=== PATIENT | male | born 1955 | race Two or more races ===

== ENCOUNTER 2024-06-03 10:12 | Inpatient (IN) | payer BC, MEDICARE ==
[~2024-06-03] VITALS: Ht 170.2 cm; Wt 104.4 kg
--- NOTE | 2024-06-03 10:58 | ED.PDOC ---
General HPI Comments HPI: Poor Historian. 69 y.o male presents to the ED for a chief complaint of bilateral flank pain associated with weakness, dizziness, chest discomfort . Patient reports recent appointment with urologist Dr. Portillo in which he scheduled due to hematuria and had a cystoscopy one week ago and was diagnosed with an infection and placed on antibiotics. Patient reports no active hematuria recently. Patient has started his antibiotics but is unsure of the name of medication at this time. Patient denies any SOB, dysuria, nausea, vomiting, diarrhea. Vitals BP: 144/80 HR: 72 Temp: 98.3 F RR: 18 SPO2: 97$ RA Past medical history: UTI Past surgical history: Eye Allergies: Denies REVIEW OF SYSTEMS: CONSTITUTIONAL: Denies acute: fever, diaphoresis, chills, HEAD: Denies acute: headache, photophobia Eyes: Denies acute: Double vision, vision loss, eye pain, eye discharge. EARS: Denies acute: tinnitus, hearing loss, ear discharge, ear pain, THROAT: Denies acute: sore throat, swelling, difficulty swallowing , pain with swallowing, change in voice. NECK: Denies acute: neck pain, neck swelling, stiff neck. HEART: Denies acute : palpitations, LUNGS: Denies acute: SOB, wheezing, cough, hemoptysis ABDOMEN: Denies acute: abdominal pain, Nausea, Vomiting, diarrhea, melena , hematemesis, hematochezia SKIN: Denies acute: rash, redness, lesions, itchiness. EXTREMITIES: Denies acute: calf pain, numbness, tingling, weakness, denies pain in extremity. Denies acute: Low back pain. Neuro: Denies acute: focal neurological deficit, motor or sensory focal neurological deficit, tremors, seizure like activity, confusion, dizziness, change in mental status, loss of bowel or bladder function, cauda equina like symptoms. : Denies acute: dysuria, hematuria, , increase in urinary frequency. PSYCH: Denies acute: hallucination, suicidal ideation, homicidal ideation. PHYSICAL EXAM: General: no acute distress, awake and alert. Head: normocephalic, atraumatic. Neck: supple, trachea is midline, no swelling. Throat: Normal phonation. Eyes:, no erythema, no purulent discharge, no proptosis, no icterus. Heart: regular rate, regular rhythm, no significant murmur appreciated. Lungs: no apparent respiratory distress, Able to speak in full sentences. No wheezing, no rhonchi, no crackles. No stridors Clear to auscultation bilaterally. Abdomen: Nonspecific mild generalized tender to palpation, non distended, soft, no guarding, no rebound, + bowel sounds. Neuro: Awake, Alert, oriented to name, self, situation, follows commands GCS=15. Speech is normal. Skin: no petechia, no purpura, no cyanosis, non-pale, not jaundice. Lower extremities: --trace - Pitting edema no deformity, no focal swelling, no calf TTP. Makes eye contact. moves all four extremities. Face: no apparent facial droop. CVA tenderness to percussion bilaterally. Ambulating in the ED independently. ED COURSE: Chief Complaint: Flank Pain Time Seen by MD: 10:40 Primary Care Provider: unknown Reviewed notes: Nurses Notes, Allergies Allergies: Coded Allergies: NO KNOWN ALLERGIES (Unverified , 06/03/24) Information Source: Patient Mode of Arrival: Ambulatory Past Medical History PAST MEDICAL HISTORY: UTI'S Surgical History (Other): eye Family History Family History: Reviewed,noncontributory to illness Social History Smoker: Non-Smoker Alcohol: Denies ETOH Use Drugs: Denies Drug Use Lives In: Home Was a procedure done? Was a procedure done?: No Differential Diagnosis Kidney stone (Female): N/A Kidney stone (Male): Pancreatitis, Pyelonephritis, Strain, Urinary tract infection Urinary Problem (Male): Bladder Outlet, Bladder Obstruction, Epididymitis, Prostatitis, Plelonephritis, Post op Complications, Renal Failure, Urethritis, Urinary Retention, Urolithiasis, UTI Urinary Problem (Female): N/A (As far as the chest pain differential diagnosis includes Ddx include but not limitied to gastritis, musculoskeletal pain, radicu lopathy, atypical chest pain, dissection, aneurysm, ACS, unstable angina, hiatal hernia, GERD, anxiety, costochondritis, PE, pneumothroax, neoplasm, cardiac ischemia, drug abuse, anemia.) X-Ray, Labs, Meds, VS Vital Signs Date Time Temp Pulse Resp B/P (MAP) Pulse Ox O2 Delivery O2 Flow Rate FiO2 06/03/24 13:37 135/78 06/03/24 12:37 135/81 06/03/24 12:26 98.0 68 15 135/81 (99) 97 98.0 06/03/24 11:41 68 18 111/72 (85) 98 06/03/24 11:41 68 18 98 Room Air* 0 21 06/03/24 10:46 98.3 72 18 144/80 (101) 97 Lab Test 06/03/24 11:57 06/03/24 11:02 06/03/24 10:43 Range/Units Troponin I High Sensitivity < 3 L < 3 L </=54 ng/L White Blood Count 12.9 H 4.4-10.8 10^3/uL Red Blood Count 5.33 4.5-5.90 10^6/uL Hemoglobin 16.3 13.5-17.5 g/dL Hematocrit 48.0 41.0-53.0 % Mean Corpuscular Volume 90.0 80.0-100.0 fL Mean Corpuscular Hemoglobin 30.5 28.0-32.0 pg Mean Corpuscular Hemoglobin Concent 33.9 32.0-36.0 g/dL Red Cell Distribution Width 14.3 11.8-14.3 % Platelet Count 338 140-450 10^3/uL Mean Platelet Volume 7.1 6.9-10.8 fL Neutrophils (%) (Auto) 75.3 37.0-80.0 % Lymphocytes (%) (Auto) 17.2 10.0-50.0 % Monocytes (%) (Auto) 5.6 0.0-12.0 % Eosinophils (%) (Auto) 1.5 0.0-7.0 % Basophils (%) (Auto) 0.4 0.0-2.0 % Neutrophils # (Auto) 9.7 H 1.6-8.6 10 ^3/uL Lymphocytes # (Auto) 2.2 0.4-5.4 10 ^3/uL Monocytes # (Auto) 0.7 0-1.3 10 ^3/uL Eosinophils # (Auto) 0.2 0-0.8 10 ^3/uL Basophils # (Auto) 0 0-0.2 10 ^3/uL Nucleated Red Blood Cells 0.1 % Sodium Level 136 136-145 mmol/L Potassium Level 4.6 3.5-5.1 mmol/L Chloride Level 101 98-107 mmol/L Carbon Dioxide Level 27 20-31 mmol/L Anion Gap 8 5-15 Blood Urea Nitrogen 15 9-23 mg/dL Creatinine 0.96 0.700-1.30 mg/dL Glomerular Filtration Rate Calc 86 >90 mL/min BUN/Creatinine Ratio 15.6 10.0-20.0 Serum Glucose 103 74-106 mg/dL Lactic Acid Level 1.9 0.4-2.0 mmol/L Calcium Level 10.4 8.7-10.4 mg/dL Magnesium Level 2.0 1.6-2.6 mg/dL Total Bilirubin 0.5 0.2-1.0 mg/dL Aspartate Amino Transferase (AST) 17 13-40 U/L Alanine Aminotransferase (ALT) 27 7-40 U/L Alkaline Phosphatase 85 46-116 U/L Total Protein 7.4 5.7-8.2 g/dL Albumin 5.0 H 3.2-4.8 g/dL Lipase 26 12-53 U/L Urine Color Yellow Yellow Urine Clarity Clear Clear Urine pH 6.0 5.0-9.0 Urine Specific [place] 1.017 1.001-1.035 Urine Protein Negative Negative Urine Ketones Negative Negative Urine Blood Negative Negative /uL Urine Nitrite Negative Negative Urine Bilirubin Negative Negative Urine Urobilinogen Normal Negative mg/dL Urine Leukocyte Esterase Negative Negative /uL Urine RBC <1 0 - 3 /hpf Urine Microscopic WBC < 1 0-3 /HPF Urine Squamous Epithelial Cells None seen <5 /hpf Urine Bacteria None seen None Seen /hpf Urine Glucose Normal Normal mg/dL Current Medications Medications (Trade) Dose Ordered Sig/Asa Route Start Time Stop Time Status Last Admin Ceftriaxone Sodium 50 ml @ 100 mls/hr ONCE ONCE IV 06/03/24 12:15 06/03/24 15:24 DC 06/03/24 13:03 Aspirin 325 mg ONCE ONCE PO 06/03/24 12:30 06/03/24 12:31 DC 06/03/24 12:37 Nitroglycerin (Ntrostat Sublingual) 0.4 mg ONCE ONCE SL 06/03/24 12:30 06/03/24 12:31 DC 06/03/24 12:37 Sodium Chloride 500 ml @ 500 mls/hr Q1H ONCE IV 06/03/24 12:30 06/03/24 13:29 DC 06/03/24 12:37 [place] [id number] Ph: [phone] DIAGNOSTIC IMAGING Diagnostic Imaging Report : [id number] Signed PATIENT: ALONA KERN I ACCT: [id number] UNIT: [id number] : 1955 LOC: ER ROOM / BED: / AGE / SEX: 69 / M ADM STATUS: REG ER SERVICE [id number] ORDERING PHYSICIAN: KRISTOFER RIVER DO PROCEDURE(s): CXRP - CHEST PORTABLE REASON: cp ORDER NUMBER(s): [id number], ACCESSION NUMBER(s): [id number] CHEST RADIOGRAPH Indication: cp Technique: Single frontal view of the chest was obtained Comparison: None FINDINGS: Lines and Tubes: None Lungs: No focal consolidation. Pleura: No effusion. No pneumothorax. Cardiomediastinal contours: Unremarkable Bones: No acute osseous abnormality. IMPRESSION: 1. No acute cardiopulmonary disease. ATED BY: VIKTORIA URBINA MD DICTATED DATE/TIME: 06/03/241120 SIGNED BY: VIKTORIA URBINA MD SIGNED DATE/TIME: 06/03/24 112 CC: [place] [address] Ph: [phone] DIAGNOSTIC IMAGING Diagnostic Imaging Report : [id number] Signed PATIENT: ALONA KERN I ACCT: [id number] UNIT: [id number] : 1955 LOC: ER ROOM / BED: / AGE / SEX: 69 / M ADM STATUS: REG ER SERVICE [id number] ORDERING PHYSICIAN: KRISTOFER RIVER DO PROCEDURE(s): ABPL - CT AB PEL WO CON-NO ORAL OR IV REASON: b/l flank pain, uti, hematuria ORDER NUMBER(s): [id number], ACCESSION NUMBER(s): [id number] CT ABDOMEN AND PELVIS WITHOUT CONTRAST CLINICAL HISTORY: b/l flank pain, uti, hematuria TECHNIQUE: Multiple contiguous axial images of the abdomen and pelvis without intravenous contrast. The images were reformatted degenerate coronal and sagittal reconstructions. All CT scans at this medical facility are performed using dose modulation techniques as appropriate to a performed exam including the following:Automated exposure control was utilized; adjustment of the MA and/or KV according to patient size; and use of iterative reconstruction technique. Radiation Dose Information: CT Dose: CTDI volume is 19 mGy. Dose-length product is 1254 mGy*cm Comparison: None FINDINGS: Evaluation of the abdomen and pelvis is limited without intravenous contrast. There is no evidence of nephrolithiasis or hydronephrosis. There is no evidence of a ureteral calculus or hydroureter. The liver, gallbladder, pancreas, adrenal glands, and spleen appear within normal limits. There is no gross evidence of abdominal lymphadenopathy. There is no free fluid or free air. The stomach grossly appears unremarkable. The small and large bowel loops demonstrate normal caliber. There are diverticula in the colon without evidence of acute diverticulitis. Appendix is not readily seen in the right lower quadrant abdomen. There are no secondary signs of acute appendicitis The abdominal aorta and IVC appear within normal limits. The prostate gland appears prominent in size. An incompletely filled bladder demonstrates circumferential wall thickening likely related to chronic outlet obstruction.. There is no gross evidence of a pelvic mass. There is no free f luid collection. Lung bases are clear. There is no acute osseous abnormality. IMPRESSION: 1. There is no acute process in the abdomen and pelvis. 2. Prostatomegaly. An incompletely filled bladder demonstrates circumferential wall thickening likely related to chronic outlet obstruction. 3. Distal colon diverticulosis. HS:Y ATED BY: JAMIN BOWDEN MD DICTATED DATE/TIME: 06/03/24 1142 SIGNED BY: JAMIN BOWDEN MD SIGNED DATE/TIME: 06/03/24 1142 CC: Time of 1ST Reevaluation: 10:54 Reevaluation 1ST: Unchanged Patient Education/Counseling: Diagnosis, Treatment Family Education/Counseling: No Family Present Comments Patient presented with the above HPI.---flank pain and urinary symptoms workup and cardiac---workup were initiated. patient was found with the above mentioned diagnosis. the following medications were ordered: please refer to order lists of meds and tests obtained by myself Dr. River. Patient ED course and VS have been stabilized. Patient has been reassessed in the ED and remained in a stable condition. Pertinent incidental findings were discussed with the patient and/or family. Patient/family voices understanding and is agreeable with plan. Patient has been observed in the ED adequate length of time to insure improvement/stability. Escalation of care considered: Consideration of escalation to observation or admission Patient was ADMITTED to the medicine team for further evaluation and treatment of their presentation. All the reports of any imaging studies that were ordered by myself were reviewed by myself. Departure 1 Departure Time of Disposition: 12:16 Impression: Primary Impression: Chest pain Additional Impressions: Bilateral flank mass Symptoms involving urinary system Disposition: ADMITTED INPATIENT Condition: Guarded Discharged With: Self Critical Care Note Critical Care Time?: No I personally scribed for KRISTOFER RIVER DO ([email or web address]) on 06/03/24 at 10:58. Electronically submitted by Hemalatha Aponte ([facility]). I personally scribed for KRISTOFER RIVER DO ([email or web address]) on 06/03/24 at 12:09. Electronically submitted by Hemalatha Aponte ([facility]). I personally scribed for KRISTOFER RIVER DO ([email or web address]) on 06/03/24 at 19:50. Electronically submitted by Hemalatha Aponte ([facility]). KRISTOFER RIVER DO Jun 03, 2024 10:58
[2024-06-03 11:09] LABS: Urine Bacteria None Seen /hpf (None Seen)
[2024-06-03 11:21] LABS: Basophils # (auto) 0 10 ^3/uL (0-0.2); Basophils % (auto) 0.4 % (0.0-2.0); Eosinophils # (auto) 0.2 10 ^3/uL (0-0.8); Eosinophils % (auto) 1.5 % (0.0-7.0); Hemoglobin 16.3 g/dL (13.5-17.5); Lymphocytes # (auto) 2.2 10 ^3/uL (0.4-5.4); Lymphocytes % (auto) 17.2 % (10.0-50.0); Mean Corpuscular Hemoglobin 30.5 pg (28.0-32.0); Mean Corpuscular Hgb Conc. 33.9 g/dL (32.0-36.0); Monocytes # (auto) 0.7 10 ^3/uL (0-1.3); Monocytes % (auto) 5.6 % (0.0-12.0); Neutrophils # (auto) 9.7 10 ^3/uL (1.6-8.6); Neutrophils % (auto) 75.3 % (37.0-80.0); Nucleated Red Blood Cells % 0.1 %; Platelet Count (auto) 338 10^3/uL (140-450); Red Blood Cells 5.33 10^6/uL (4.5-5.90); Red Cell Distribution Width 14.3 % (11.8-14.3); White Blood Cell 12.9 10^3/uL (4.4-10.8)
--- NOTE | 2024-06-03 11:23 | DVH ---
CHEST RADIOGRAPH Indication: cp Technique: Single frontal view of the chest was obtained Comparison: None FINDINGS: Lines and Tubes: None Lungs: No focal consolidation. Pleura: No effusion. No pneumothorax. Cardiomediastinal contours: Unremarkable Bones: No acute osseous abnormality. IMPRESSION: 1. No acute cardiopulmonary disease.
[2024-06-03 11:28] LABS: Urine Blood Negative /uL (Negative); Urine Clarity Clear (Clear); Urine Color Yellow (Yellow); Urine Protein, UAD Negative (Negative); Urine Specific Gravity 1.017 (1.001-1.035); Urine Squamous Epithelial Cell None Seen /hpf (<5); Urine Urobilinogen Normal (Negative); Urine WBC < 1 /HPF (0-3)
[2024-06-03 11:41] VITALS: PULSE 68; RESP 18; O2SAT 98
[2024-06-03 11:41] LABS: Alanine Aminotransferase 27 U/L (7-40); Alkaline Phosphatase 85 U/L (46-116); Anion Gap 8 (5-15); Aspartate Aminotransferase 17 U/L (13-40); BUN/Creatinine Ratio 15.6 (10.0-20.0); Blood Urea Nitrogen 15 mg/dL (9-23); Calcium 10.4 mg/dL (8.7-10.4); Carbon Dioxide 27 mmol/L (20-31); Chloride 101 mmol/L (98-107); Glucose 103 mg/dL (74-106); Lipase 26 U/L (12-53); Potassium 4.6 mmol/L (3.5-5.1); Total Protein 7.4 g/dL (5.7-8.2)
[2024-06-03 11:42] LABS: Bilirubin, Total 0.5 mg/dL (0.2-1.0); Sodium 136 mmol/L (136-145)
--- NOTE | 2024-06-03 11:44 | DVH ---
CT ABDOMEN AND PELVIS WITHOUT CONTRAST CLINICAL HISTORY: b/l flank pain, uti, hematuria TECHNIQUE: Multiple contiguous axial images of the abdomen and pelvis without intravenous contrast. T he images were reformatted degenerate coronal and sagittal reconstructions. All CT scans at this medical facility are performed using dose modulation techniques as appropriate t o a performed exam including the following:Automated exposure control was utilized; adjustment of the MA and/or KV according to patient size; and use of iterative reconstruction technique. Radiation Dose Information: CT Dose: CTDI volume is 19 mGy. Dose-length product is 1254 mGy*cm Comparison: None FINDINGS: Evaluation of the abdomen and pelvis is limited without intravenous contrast. There is no evidence of nephrolithiasis or hydronephrosis. There is no evidence of a ureteral calculu s or hydroureter. The liver, gallbladder, pancreas, adrenal glands, and spleen appear within normal limits. There is no gross evidence of abdominal lymphadenopathy. There is no free fluid or free air. The stomach grossly appears unremarkable. The small and large bowel loops demonstrate normal caliber . There are diverticula in the colon without evidence of acute diverticulitis. Appendix is not read alfa seen in the right lower quadrant abdomen. There are no secondary signs of acute appendicitis The abdominal aorta and IVC appear within normal limits. The prostate gland appears prominent in size. An incompletely filled bladder demonstrates circumferen tial wall thickening likely related to chronic outlet obstruction.. There is no gross evidence of a pelvic mass. There is no free fluid collection. Lung bases are clear. There is no acute osseous abnormality. IMPRESSION: 1. There is no acute process in the abdomen and pelvis. 2. Prostatomegaly. An incompletely filled bladder demonstrates circumferential wall thickening likely related to chronic outlet obstruction. 3. Distal colon diverticulosis. HS:Y
[2024-06-03] MEDS: NITROGLYCERIN 0.4 MG SL TAB SL ONE (12:37)
[2024-06-03] MEDS: SODIUM CHLORIDE 0.9% 500 ML IV ONE (12:37)
[2024-06-03] MEDS: ASPirin 325 MG TAB PO ONE (12:37)
[2024-06-03] MEDS: cefTRIAXone 1GM/50ML D5W 50 ML IV ONE (13:03)
[2024-06-03] MEDS ORDERED: ACETAMINOPHEN 325 MG TAB PO PRN (15:15)
[2024-06-03] MEDS ORDERED: ONDANSETRON HCL 4 MG/2 ML VIAL IV PRN (15:15)
[2024-06-03] MEDS ORDERED: cefTRIAXone 1GM/50ML D5W 50 ML IV ONE (15:15)
--- NOTE | 2024-06-03 15:25 | DVHHP2 ---
History of Present Illness Reason for Visit: Left flank pain History of Present Illness Enrique Greer I is a 69-year-old male with past medical history of hyperlipidemia, UTIs, cystoscopy a week ago, bilateral carpal tunnel surgery, appendectomy, and left retinal detachment who presents to the ED with left flank pain x1 day. Patient reports the pain as 7/10 aching and constant. He also reports that he has been having cold sweats for years. 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 He denies any heart failure history. Patient denies any hematuria, chest pain, shortness of breath, fever, chills, lightheadedness, weakness, dizz iness, nausea, vomiting, diarrhea, abdominal pain, wheezing, recent trauma or injury, recent sick contacts, and recent ingestion of spoiled food. Patient was recently discharged with antibiotics but unknown what he was prescribed. Cardiovascular: hyperipidemia Renal/: UTI Past Surgical History: Appendectomy, Other (Left retinal detachment repair, bilateral carpal tunnel surgery, and cystoscopy) Family History: None Smoke: No (Chews tobacco) ALCOHOL: none Drugs: None Lives: with Family Domestic Violence: Neg Review of Systems Constitutional: Yes: Sweats Musculoskeletal: other (Left flank pain) Allergies: Coded Allergies: NO KNOWN ALLERGIES (Unverified , 06/03/24) Exam Vital Signs Vital Signs Date Time Temp Pulse Resp B/P (MAP) Pulse Ox O2 Delivery O2 Flow Rate FiO2 06/03/24 13:37 135/78 06/03/24 12:26 98.0 68 15 97 98.0 06/03/24 11:41 Room Air* 0 21 General Appearance: Alert, Oriented X3, Cooperative, No acute distress HEENT: Atraumatic, PERRLA, EOMI, Mucous membr. moist/pink Respiratory: Clear to auscultation, Normal air movement Cardiovascular: Regular rate, Normal S1, Normal S2, No murmurs Abdominal: Normal bowel sounds, Soft, No tenderness, No hepatospenomegaly, No masses Extremities: No cyanosis, Normal pulses Skin: No significant lesion Neuro: Normal gait, Normal speech, Strength at 5/5 X4 ext, Normal tone, Sensation intact Psych/Mental Status: Mental status NL, Mood NL Labs/Xrays Labs Test 06/03/24 11:57 06/03/24 11:02 06/03/24 10:43 Range/Units Troponin I High Sensitivity < 3 L </=54 ng/L White Blood Count 12.9 H 4.4-10.8 10^3/uL Red Blood Count 5.33 4.5-5.90 10^6/uL Hemoglobin 16.3 13.5-17.5 g/dL Hematocrit 48.0 41.0-53.0 % Mean Corpuscular Volume 90.0 80.0-100.0 fL Mean Corpuscular Hemoglobin 30.5 28.0-32.0 pg Mean Corpuscular Hemoglobin Concent 33.9 32.0-36.0 g/dL Red Cell Distribution Width 14.3 11.8-14.3 % Platelet Count 338 140-450 10^3/uL Mean Platelet Volume 7.1 6.9-10.8 fL Neutrophils (%) (Auto) 75.3 37.0-80.0 % Lymphocytes (%) (Auto) 17.2 10.0-50.0 % Monocytes (%) (Auto) 5.6 0.0-12.0 % Eosinophils (%) (Auto) 1.5 0.0-7.0 % Basophils (%) (Auto) 0.4 0.0-2.0 % Neutrophils # (Auto) 9.7 H 1.6-8.6 10 ^3/uL Lymphocytes # (Auto) 2.2 0.4-5.4 10 ^3/uL Monocytes # (Auto) 0.7 0-1.3 10 ^3/uL Eosinophils # (Auto) 0.2 0-0.8 10 ^3/uL Basophils # (Auto) 0 0-0.2 10 ^3/uL Nucleated Red Blood Cells 0.1 % Sodium Level 136 136-145 mmol/L Potassium Level 4.6 3.5-5.1 mmol/L Chloride Level 101 98-107 mmol/L Carbon Dioxide Level 27 20-31 mmol/L Anion Gap 8 5-15 Blood Urea Nitrogen 15 9-23 mg/dL Creatinine 0.96 0.700-1.30 mg/dL Glomerular Filtration Rate Calc 86 >90 mL/min BUN/Creatinine Ratio 15.6 10.0-20.0 Serum Glucose 103 74-106 mg/dL Lactic Acid Level 1.9 0.4-2.0 mmol/L Calcium Level 10.4 8.7-10.4 mg/dL Magnesium Level 2.0 1.6-2.6 mg/dL Total Bilirubin 0.5 0.2-1.0 mg/dL Aspartate Amino Transferase (AST) 17 13-40 U/L Alanine Aminotransferase (ALT) 27 7-40 U/L Alkaline Phosphatase 85 46-116 U/L Total Protein 7.4 5.7-8.2 g/dL Albumin 5.0 H 3.2-4.8 g/dL Lipase 26 12-53 U/L Urine Color Yellow Yellow Urine Clarity Clear Clear Urine pH 6.0 5.0-9.0 Urine Specific [place] 1.017 1.001-1.035 Urine Protein Negative Negative Urine Ketones Negative Negative Urine Blood Negative Negative /uL Urine Nitrite Negative Negative Urine Bilirubin Negative Negative Urine Urobilinogen Normal Negative mg/dL Urine Leukocyte Esterase Negative Negative /uL Urine RBC <1 0 - 3 /hpf Urine Microscopic WBC < 1 0-3 /HPF Urine Squamous Epithelial Cells None seen <5 /hpf Urine Bacteria None seen None Seen /hpf Urine Glucose Normal Normal mg/dL CHEST RADIOGRAPH Indication: cp Technique: Single frontal view of the chest was obtained Comparison: None FINDINGS: Lines and Tubes: None Lungs: No focal consolidation. Pleura: No effusion. No pneumothorax. Cardiomediastinal contours: Unremarkable Bones: No acute osseous abnormality. IMPRESSION: 1. No acute cardiopulmonary disease. CT ABDOMEN AND PELVIS WITHOUT CONTRAST CLINICAL HISTORY: b/l flank pain, uti, hematuria TECHNIQUE: Multiple contiguous axial images of the abdomen and pelvis without intravenous contrast. The images were reformatted degenerate coronal and sagittal reconstructions. All CT scans at this medical facility are performed using dose modulation techniques as appropriate to a performed exam including the following:Automated exposure control was utilized; adjustment of the MA and/or KV according to patient size; and use of iterative reconstruction technique. Radiation Dose Information: CT Dose: CTDI volume is 19 mGy. Dose-length product is 1254 mGy*cm Comparison: None FINDINGS: Evaluation of the abdomen and pelvis is limited without intravenous contrast. There is no evidence of nephrolithiasis or hydronephrosis. There is no evidence of a ureteral calculus or hydroureter. The liver, gallbladder, pancreas, adrenal glands, and spleen appear within normal limits. There is no gross evidence of abdominal lymphadenopathy. There is no free fluid or free air. The stomach grossly appears unremarkable. The small and large bowel loops demonstrate normal caliber. There are diverticula in the colon without evidence of acute diverticulitis. Appendix is not readily seen in the right lower quadrant abdomen. There are no secondary signs of acute appendicitis The abdominal aorta and IVC appear within normal limits. The prostate gland appears prominent in size. An incompletely filled bladder demonstrates circumferential wall thickening likely related to chronic outlet obstruction.. There is no gross evidence of a pelvic mass. There is no free fl uid collection. Lung bases are clear. There is no acute osseous abnormality. IMPRESSION: 1. There is no acute process in the abdomen and pelvis. 2. Prostatomegaly. An incompletely filled bladder demonstrates circumferential wall thickening likely related to chronic outlet obstruction. 3. Distal colon diverticulosis. Assessment/Plan Assessment/Plan Assessment Left flank pain Leukocytosis Diverticulosis Prostatomegaly Tobacco use Obesity History of left retinal detachment surgery History of Bilateral carpal tunnel surgery History of appendectomy Plan Admit to same day [facility] center IV antibiotics-Levaquin IV fluids given in ED Nitro given ED Aspirin given ED EKG Troponin negative x2 CT abdomen and pelvis noted Chest x-ray noted UA Mag level Lipase Lactic Influenza swab COVID swab PSA BNP Echo ordered Finasteride Tamsulosin Ultrasound bilateral lower extremity Ultrasound left kidney ordered Diet Antiemetics Pain management Counseled patient on cessation of chewing tobacco Counseled patient on lifestyle modifications, diet, and exercise Requested patient to give a home list of medications taken, unable to reconcile medications Plan discussed with: Patient My Orders Orders - ALMA SOLORIO [employer] Procedure Category Date Status Time Psa Total+% Free LAB 06/03/24 Logged 15:09 B-Type Natriuretic LAB 06/03/24 Logged Peptide 15:09 Echo 2d Mode Cardiac US 06/03/24 Logged DOP 15:09 Rapid Influenza A&B LAB 06/03/24 Logged 15:09 Covid19 Antigen [facility] LAB 06/03/24 Logged Admit ADMIT 06/03/24 Transmitted 15:09 Allergies RUSSEL 06/03/24 In Process 15:09 Code Status CODE 06/03/24 Transmitted 15:09 Hydrocodone-Acet PHA 06/03/24 Logged 5/325mg Tab ([place] 15:15 Ondansetron Hcl PHA 06/03/24 Logged (Zofran) 15:15 Complete Blood Count LAB 06/04/24 Verified 04:00 Comprehensive LAB 06/04/24 Verified Metabolic Panel 04:00 Cardiac DIET 06/03/24 Transmitted Diet-2gna,Lofat,Lochol Dinner Acetaminophen Tablet PHA 06/03/24 Logged (Tylenol Tablet) 15:15 Bilat Lower Dvt US 06/03/24 Logged 15:09 Finasteride Tablet PHA 06/04/24 Transmitted (Proscar Tablet) 10:00 Tamsulosin PHA 06/03/24 Transmitted Hydrochloride (Flomax) 18:00 Ceftriaxone Ivpb PHA 06/04/24 Verified Rocephin 09:00 Ceftriaxone Ivpb PHA 06/03/24 Verified Rocephin 15:15 Date of Service: Jun 03, 2024 Billing Provider: ALMA SOLORIO Common Visit Codes: [id number] INP/OBS CARE (HIGH) ALMA SOLORIO Jun 03, 2024 15:25
[2024-06-03] MEDS: levoFLOXacin 500MG 100 ML IV ONE (15:59)
--- NOTE | 2024-06-03 16:16 | DVH ---
EXAM: US Duplex Bilateral Lower Extremities Veins CLINICAL INDICATION: swelling TECHNIQUE: Real-time duplex ultrasound scan of the bilateral lower extremity veins integrating B-mod e two-dimensional vascular structure, Doppler spectral analysis, color flow Doppler imaging and compr ession. COMPARISON: None FINDINGS: RIGHT DEEP VEINS: Unremarkable. No DVT in the right common femoral, femoral, proximal deep femoral or popliteal veins. The veins demonstrate normal color flow, are normally compressible, with normal phasic flow and/or augmentation response. RIGHT SUPERFICIAL VEINS: Unremarkable. No thrombus in the visualized right great saphenous vein. LEFT DEEP VEINS: Unremarkable. No DVT in the left common femoral, femoral, proximal deep femoral o r popliteal veins. The veins demonstrate normal color flow, are normally compressible, with normal p hasic flow and/or augmentation response. LEFT SUPERFICIAL VEINS: Unremarkable. No thrombus in the visualized left great saphenous vein. SOFT TISSUES: No acute findings. No popliteal cyst. OTHER FINDINGS: . None. IMPRESSION: No DVT.
[2024-06-03 16:47] LABS: COVID19 ANTIGEN SOFIA FIA NEGATIVE (NEGATIVE); Rapid Influenza A Negative (Negative); Rapid Influenza B Negative (Negative)
[2024-06-03] MEDS: TAMSULOSIN HYDROCHLORIDE 0.4 MG CAP PO SCH (16:59)
--- NOTE | 2024-06-03 17:00 | DVH ---
EXAM: US Retroperitoneal Limited, Renal CLINICAL INDICATION: left flank pain TECHNIQUE: Real-time limited ultrasound of the retroperitoneum with image documentation. COMPARISON: None FINDINGS: RIGHT KIDNEY: Mild right hydronephrosis without obstructing calculus. Right kidney measures 13.3 c m. LEFT KIDNEY: Unremarkable. No stones. No hydronephrosis. Left kidney measures 12.1 cm. SOFT TISSUES: The prostate gland measures 3.4 cm in maximum dimension. OTHER FINDINGS: . Neobladder appears normal. Prevoid 341 cc. IMPRESSION: Mild right hydronephrosis without obstructing calculus.
[2024-06-03 18:46] VITALS: PULSE 56; RESP 18; O2SAT 97
[2024-06-03] MEDS: HYDROcodone-ACET 5/325MG TAB PO PRN (19:22)
[2024-06-03 21:00] VITALS: BP 124/70; PULSE 64; RESP 16; TEMP 98.3; O2SAT 95
[2024-06-03] MEDS ORDERED: GABA-1250 PO (23:05)
[2024-06-03] MEDS ORDERED: DONE10TA9 PO (23:05)
[2024-06-03] MEDS ORDERED: OMEP20TA PO (23:05)
[2024-06-03] MEDS ORDERED: PERCOT PO (23:05)
[2024-06-03] MEDS ORDERED: OXY5T GT (23:05)
[2024-06-03] MEDS ORDERED: LISI10TA34 PO (23:05)
[2024-06-03] MEDS ORDERED: VENL37.572 PO (23:05)
[2024-06-03] MEDS ORDERED: ATOR20TA PO (23:05)
[2024-06-03] MEDS ORDERED: BACL10TA PO (23:05)
[2024-06-03] MEDS ORDERED: LEVO50TA7 PO (23:05)
[2024-06-03] MEDS ORDERED: TIZA4TAB9 PO (23:05)
[2024-06-04 01:00] VITALS: BP 154/79; PULSE 56; RESP 15; TEMP 97.7; O2SAT 98
[2024-06-04 08:07] LABS: PSA Free 0.44 ng/mL; Prostate Specific Antigen 1.9 ng/mL (0.0-4.0)
[2024-06-04] MEDS ORDERED: cefTRIAXone 1GM/50ML D5W 50 ML IV SCH (09:00)
[2024-06-04] MEDS ORDERED: levoFLOXacin 500MG 100 ML IV SCH (10:00)
[2024-06-04] MEDS ORDERED: FINASTERIDE 5 MG TAB PO SCH (10:00)
--- NOTE | 2024-06-04 10:43 | DVHDSRES ---
Discharge Summary Date of Admission Resident Creating Document: JOSHUA GUERRA RESIDENT Jun 03, 2024 at 15:09 Date of Discharge: Jun 04, 2024 Labs/Diagnostic Data: Laboratory Results Test 06/03/24 16:58 06/03/24 15:58 06/03/24 11:57 06/03/24 11:02 B-Type Natriuretic Peptide 20.29 pg/mL (0-100) Free Prostate Specific Antigen 0.44 ng/mL (N/A) Percent Free Prostate Specific Ag 23.2 % (.) Prostate Specific Antigen Total 1.9 ng/mL (0.0-4.0) Influenza Type A Antigen Negative (Negative) Influenza Type B Antigen Negative (Negative) SARS-CoV-2 Antigen (Rapid) Negative (NEGATIVE) Troponin I High Sensitivity < 3 ng/L (</=54) White Blood Count 12.9 10^3/uL (4.4-10.8) Red Blood Count 5.33 10^6/uL (4.5-5.90) Hemoglobin 16.3 g/dL (13.5-17.5) Hematocrit 48.0 % (41.0-53.0) Mean Corpuscular Volume 90.0 fL (80.0-100.0) Mean Corpuscular Hemoglobin 30.5 pg (28.0-32.0) Mean Corpuscular Hemoglobin Concent 33.9 g/dL (32.0-36.0) Red Cell Distribution Width 14.3 % (11.8-14.3) Platelet Count 338 10^3/uL (140-450) Mean Platelet Volume 7.1 fL (6.9-10.8) Neutrophils (%) (Auto) 75.3 % (37.0-80.0) Lymphocytes (%) (Auto) 17.2 % (10.0-50.0) Monocytes (%) (Auto) 5.6 % (0.0-12.0) Eosinophils (%) (Auto) 1.5 % (0.0-7.0) Basophils (%) (Auto) 0.4 % (0.0-2.0) Neutrophils # (Auto) 9.7 10 ^3/uL (1.6-8.6) Lymphocytes # (Auto) 2.2 10 ^3/uL (0.4-5.4) Monocytes # (Auto) 0.7 10 ^3/uL (0-1.3) Eosinophils # (Auto) 0.2 10 ^3/uL (0-0.8) Basophils # (Auto) 0 10 ^3/uL (0-0.2) Nucleated Red Blood Cells 0.1 % Sodium Level 136 mmol/L (136-145) Potassium Level 4.6 mmol/L (3.5-5.1) Chloride Level 101 mmol/L (98-107) Carbon Dioxide Level 27 mmol/L (20-31) Anion Gap 8 (5-15) Blood Urea Nitrogen 15 mg/dL (9-23) Creatinine 0.96 mg/dL (0.700-1.30) Glomerular Filtration Rate Calc 86 mL/min (>90) BUN/Creatinine Ratio 15.6 (10.0-20.0) Serum Glucose 103 mg/dL (74-106) Lactic Acid Level 1.9 mmol/L (0.4-2.0) Calcium Level 10.4 mg/dL (8.7-10.4) Magnesium Level 2.0 mg/dL (1.6-2.6) Total Bilirubin 0.5 mg/dL (0.2-1.0) Aspartate Amino Transferase (AST) 17 U/L (13-40) Alanine Aminotransferase (ALT) 27 U/L (7-40) Alkaline Phosphatase 85 U/L (46-116) Total Protein 7.4 g/dL (5.7-8.2) Albumin 5.0 g/dL (3.2-4.8) Lipase 26 U/L (12-53) Test 06/03/24 10:43 Urine Color Yellow (Yellow) Urine Clarity Clear (Clear) Urine pH 6.0 (5.0-9.0) Urine Specific [place] 1.017 (1.001-1.035) Urine Protein Negative (Negative) Urine Ketones Negative (Negative) Urine Blood Negative /uL (Negative) Urine Nitrite Negative (Negative) Urine Bilirubin Negative (Negative) Urine Urobilinogen Normal mg/dL (Negative) Urine Leukocyte Esterase Negative /uL (Negative) Urine RBC <1 /hpf (0 - 3) Urine Microscopic WBC < 1 /HPF (0-3) Urine Squamous Epithelial Cells None seen /hpf (<5) Urine Bacteria None seen /hpf (None Seen) Urine Glucose Normal mg/dL (Normal) Other Laboratory Tests 06/03/24 11:02 Brief Hx & Hospital Course: Patient left AMA before my evaluation Condition at Discharge: Undetermined Final Diagnosis/Problems List Mild right hydronephrosis Diverticulosis Prostatomegaly Discharge Disposition: AMA Discharge Statement: "Patient was advised to return to the ER or call 911 if any headaches, dizziness, shortness of breath, chest pain, abdominal pain, bleeding, fevers, or worsening of medical condition. Patient was counseled about treatment plan, medications, possible side effects, patientverbalized understanding. All questions were answered to the best of my ability. This discharge took greater then 30 minutes in planning, reviewing documentation, counseling the patient, and discussing with other team members." ASSESSMENT ASSESSMENT Assessment JOSHUA GUERRA RESIDENT Jun 04, 2024 10:43
== END 2024-06-04 04:06 | disposition left against medical advice (07) | DRG 694 ==
LOC: ER 10:12 → OVERFLOW 15:09
PROVIDERS: ADMIT Student in an Organized Health Care Education/Training Program; ATTEND Emergency Medicine
DX: N13.30 Unspecified hydronephrosis (principal); K57.30 Diverticulosis of large intestine without perforation or abscess without bleeding; N40.0 Benign prostatic hyperplasia without lower urinary tract symptoms; Z20.822 Contact with and (suspected) exposure to COVID-19; E66.9 Obesity, unspecified; Z53.29 Procedure and treatment not carried out because of patient's decision for other reasons; E78.5 Hyperlipidemia, unspecified; Z68.36 Body mass index [BMI] 36.0-36.9, adult; Z90.49 Acquired absence of other specified parts of digestive tract
CPT/HCPCS: 36415; 71045; 74176; 76775; 80053; 81001; 83605; 83690; 83735; 83880; 84154; 84484; 85025; 87426; 87804; 93970; 96365; G0378; J1956